=== PATIENT | female | born 1970 | race Caucasian/White ===

== ENCOUNTER 2017-08-21 08:05 | Emergency (ER) | payer BC ==
[2017-08-21 08:14] VITALS: BP 144/88; PULSE 76; TEMP 97.9; BMI 29.0
[2017-08-21] MEDS ORDERED: CYCLOBENZAPRINE HCL 10 MG TABLET (FP) ONE (08:49)
[2017-08-21] MEDS ORDERED: KETOROLAC TROMETHAMINE 60 MG/2 ML VIAL ONE (08:49)
--- NOTE | 2017-08-21 08:57 | PDOC ---
History of Present Illness - General Chief Complaint: Pain Stated Complaint: RT ARM PAIN Time Seen by Provider: 08/21/17 08:41 History Source: Patient, Family Exam Limitations: No Limitations - History of Present Illness Initial Comments: 08/21/17 08:57 Patient here with complaints of right shoulder scapular and upper back pain. 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 States had onset of pain 2 months ago but resolved, recurrence of this pain happened approximately 3 days ago and is progressively worsened. Has taken Tylenol, used icy hot, with minimal resolved. Denies fever, cough, shortness of breath, chest pain or palpitations. No rashes or lesions. Occurred: reports: just prior to arrival Severity: reports: moderate Pain Location: reports: back Method of Injury: Yes: unknown Associated Symptoms (Fall): denies symptoms Past History - Travel Traveled outside of the country in the last 30 days: No Close contact w/someone who was outside of country & ill: No - Past Medical History Allergies/Adverse Reactions: Allergies Allergy/AdvReac Type Severity Reaction Status Date / Time No Known Allergies Allergy Verified 08/21/17 08:08 Home Medications: Ambulatory Orders Multivitamin [Multivitamins] 1 each PO DAILY 08/10/13 Ibuprofen [Motrin -] 600 mg PO Q6H PRN #0 tablet 08/19/13 Oxycodone HCl/Acetaminophen [Percocet 5-325 mg Tablet] 1 - 2 combo PO Q4H PRN # 0 tablet 08/19/13 Cyclobenzaprine HCl 10 mg PO Q8H PRN #14 tablet 08/21/17 Ibuprofen 400 mg PO Q6H PRN #30 tablet 08/21/17 COPD: No GI Disorders: No Thyroid Disease: No - Surgical History Appendectomy: Yes - Suicide/Smoking/Psychosocial Hx Smoking Status: No Smoking History: Never smoked Have you smoked in the past 12 months: No Number of Cigarettes Smoked Daily: 0 Information on smoking cessation initiated: No Hx Alcohol Use: No Drug/Substance Use Hx: No Substance Use Type: Alcohol Hx Substance Use Treatment: No Trauma Specific PMHX - Complaint Specific PMHX Back Injury: No Neck Injury: No Review of Systems - Review of Systems Able to Perform ROS?: Yes Is the patient limited Yi proficient: Yes Constitutional: Yes: Symptoms Reported, See HPI, Malaise. No: Fever HEENTM: Yes: See HPI. No: Symptoms Reported Respiratory: Yes: See HPI, Cough. No: Symptoms reported Musculoskeletal: Yes: Symptoms Reported Integumentary: Yes: See HPI. No: Symptoms Reported All Other Systems: Reviewed and Negative *Physical Exam - Vital Signs Last Vital Signs Temp Pulse Resp BP Pulse Ox 97.9 F 76 18 144/88 100 08/21/17 08:08 08/21/17 08:08 08/21/17 08:08 08/21/17 08:08 08/21/17 08:08 - Physical Exam General Appearance: Yes: Nourished, Appropriately Dressed, Apparent Distress, Mild Distress, Moderate Distress HEENT: positive: NGOZI, Normal ENT Inspection, TMs Normal, Pharynx Normal Neck: positive: Supple. negative: Tender Respiratory/Chest: positive: Lungs Clear Musculoskeletal: positive: Normal Inspection, Muscle Spasm (tenderness reproduced with motion to the right shoulder, scapular area, upper trapezius muscles. Reproduced tenderness with pressure midpoint trapezius that reproduces pain extending into neck and over shoulder. Patient reports as pain seeking attention for.) Extremity: positive: Normal Capillary Refill, Normal Range of Motion Integumentary: positive: Dry, Warm, Pale. negative: Rash, Swelling, Ecchymosis Neurologic: positive: advertising clerk II-XII NML intact, Fully Oriented, Alert, Normal Mood/ Affect, Normal Response, Motor Strength 5/5 Progress Note - Progress Note Progress Note: Muscle strain of right shoulder, will treat with NSAIDs and cyclobenzaprine *DC/Admit/Observation/Transfer Diagnosis at time of Disposition: tender tight muscle groups of upper trapezius and mid back. Has no true bone tenderness, range of motion to right shoulder and arm difficult secondary to the pain to Upper back strain Qualifiers: Encounter type: initial encounter Qualified Code(s): S29.012A - Strain of muscle and tendon of back wall of thorax, initial encounter - Discharge Dispostion Disposition: HOME Condition at time of disposition: Stable Admit: No - Prescriptions Prescriptions: Cyclobenzaprine HCl 10 mg PO Q8H PRN #14 tablet PRN Reason: spasm Ibuprofen 400 mg PO Q6H PRN #30 tablet PRN Reason: Pain - Referrals Referrals: Joseph Booker MD [Staff Physician] - - Patient Instructions Printed Discharge Instructions: DI for Muscle Strain Additional Instructions: Rest, no heavy lifting or exercise until pain is resolved Hot soaks to neck and low back as often as possible/hot showers or Jacuzzis No massage or therapy until spasm is gone Continue -IbProfen 2 tabs of 200mg every 6 hours for the next 3 days then as needed for pain and swelling Cyclobenzaprine 1-10mg every 8 hours as needed for spasm If not significant improvement within 24 hours with medication and rest regime, followup with private physician for change in medications and /or therapy. - Post Discharge Activity Forms/Work/School Notes: Back to Work
== END 2017-08-21 23:00 | disposition home or self-care (01) ==
LOC: JERFT 08:05
DX: S29.012A Strain of muscle and tendon of back wall of thorax, initial encounter (principal); X58.XXXA Exposure to other specified factors, initial encounter; Y93.89 Activity, other specified; Y92.9 Unspecified place or not applicable
CPT/HCPCS: 99281-25